=== PATIENT | male | born 1960 | race Caucasian/White ===

== ENCOUNTER 2022-10-07 14:50 | Emergency (ER) | payer OTHER, SELFPAY ==
[2022-10-07 15:15] VITALS: BP 133/72; PULSE 73; RESP 16; TEMP 36.7; O2SAT 99
[2022-10-07] MEDS: TETANUS,DIPHTHERIA,AC PERTUSSIS ADULT (0.5 ML) BOOSTRIX IM (17:24)
[2022-10-07] MEDS: LIDOCAINE HCL 1% LOCAL INJ 10 ML VIAL (17:25)
--- NOTE | 2022-10-07 17:39 | ED.WOUNDLAC ---
HPI - Wound/Laceration General Chief Complaint: Wound/Laceration Stated Complaint: Finger Laceration Time Seen by Provider: 10/07/22 16:53 Source: patient Mode of arrival: ambulatory Limitations: no limitations History of Present Illness HPI narrative: This is a 62-year-old male that presents to the emergency department for a laceration to the left second finger sustained just prior to arrival. Reports he accidentally cut himself with a box car loader. Reports bleeding and pain to the area. He is unsure of his last tetanus vaccination. Denies decreased range of motion or numbness. Related Data Home Medications Medication Instructions Recorded Confirmed aspirin 81 mg chewable tablet 81 mg PO DAILY 05/15/22 05/15/22 Allergies Allergy/AdvReac Type Severity Reaction Status Date / Time No Known Allergies Allergy Verified 10/07/22 17:01 Review of Systems Review of Systems: CONSTITUTIONAL: Denies fever SKIN: Reports laceration MUSCULOSKELETAL: Denies joint pain NEUROLOGIC: Denies numbness All systems reviewed & are unremarkable except as noted in HPI and below PMFSH Past Medical History Medical History Colon polyps Hearing aid worn Obesity (BMI 30.0-34.9) Tubular adenoma of colon Social History Social History (Updated 05/15/22 @ 13:39 by Wilfredo Mason MA) Smoking status: Current some day smoker Smoking end date: 10/27/18 Additional smoking assessment comments: pt is off and on smoker Alcohol intake: current Substance use type: does not use Lack of Transportation: No Lack of Food: Never True Current Housing: I Have Housing Concerned About Future Housing: No Difficulty Paying Gas/Electric Bills: No Difficulty Paying for Meds: No Currently Unemployed: No Education: Bachelor's Degree Difficulty w/ Childcare or Family Care: No Exam Narrative: GENERAL: Well-appearing, well-nourished, and in no acute distress. HEAD: Normocephalic, atraumatic. EYES: EOMI. EXTREMITIES: Normal range of motion. No edema. Left second finger dorsal surface at the base with 1cm linear laceration into subcutaneous tissue. Normal sensation SKIN: Warm, dry, no rash. NEURO: No focal deficits. Alert and oriented x3. PSYCH: Normal mood and affect Course Course Emergency Course: Patient was educated on wound care Vital Signs Vital signs: Vital Signs Temperature 98.1 F 10/07/22 15:15 Pulse Rate 73 10/07/22 15:15 Respiratory Rate 16 10/07/22 15:15 Blood Pressure 133/72 10/07/22 15:15 Pulse Oximetry 99 10/07/22 15:15 Oxygen Delivery Room Air 10/07/22 15:15 Temperature 98.1 F 10/07/22 15:15 Pulse Rate 73 10/07/22 15:15 Respiratory Rate 16 10/07/22 15:15 Blood Pressure 133/72 10/07/22 15:15 Pulse Oximetry 99 10/07/22 15:15 Oxygen Delivery Room Air 10/07/22 15:15 Procedures Laceration Laceration 1: Date: 10/07/22 Time: 17:41 Site: hand Side (If applicable): left Size (cm): 1 Description: linear Depth: simple, single layer Local Anesthetic: lidocaine 1% Amount of anesthesia used (mL): 1 Pre-repair: wound explored and irrigated ====== Skin Level ====== Skin layer closed with: nylon Size (cm): 4-0 Number of sutures: 2 Technique: simple, interrupted ====== Subcutaneous Layer ====== ====== Muscle Layer ====== ====== Tendon Layer ====== MDM - Wound/Laceration MDM Narrative Medical decision making narrative: Patient presents emergency department for a laceration to the left second finger sustained just prior to arrival. He is neurovascularly intact. Updated on tetanus. Wound was irrigated and closed with sutures. He was educated on wound care. He is to follow-up with primary care provider. He was given warnings to return to the ER Differential Diagnosis Differential di
[2022-10-07 17:50] VITALS: BP 132/79; PULSE 71; O2SAT 98
== END 2022-10-07 17:51 | disposition home or self-care (01) ==
PROVIDERS: Emergency Provider Physician Assistant; PCP Family Medicine
DX: S61.211A Laceration without foreign body of left index finger without damage to nail, initial encounter (principal); Z23 Encounter for immunization; E66.9 Obesity, unspecified; Z68.33 Body mass index [BMI] 33.0-33.9, adult; Z86.010 Personal history of colon polyps; Z87.891 Personal history of nicotine dependence; W27.0XXA Contact with workbench tool, initial encounter
CPT/HCPCS: 12001; 90471; 90715; 99282

== ENCOUNTER 2022-10-17 08:52 | Outpatient (CLI) | payer OTHER, SELFPAY ==
[2022-10-17 18:47] LABS: Kit Draw Collected
== END 2022-10-17 08:53 | disposition home or self-care (01) ==
LOC: ANHGOSHLAB 08:54
PROVIDERS: PCP Family Medicine; Visit Provider Physician Assistant
DX: E11.9 Type 2 diabetes mellitus without complications (principal); I10 Essential (primary) hypertension; E78.2 Mixed hyperlipidemia; E66.9 Obesity, unspecified
CPT/HCPCS: 36415

== ENCOUNTER 2023-05-01 08:34 | Outpatient (CLI) | payer OTHER, SELFPAY ==
--- NOTE | ~2023-05-01 | US_ITS ---
EXAMINATION: US arterial ankle brachial ind DATE: 05/01/2023 09:25 INDICATION: Peripheral vascular disease, unspecified. TECHNIQUE: Segmental pressures and plethysmographic and Doppler waveforms of the brachial and lower e xtremity arteries were obtained. COMPARISON: None. FINDINGS: Right and left brachial artery pressures of 124 mm Hg and 126 mm Hg, respectively, are concordant (no rmal difference <= 30 mmHg). The right ankle-brachial index (TOM) is 1.39 (normal >= 0.9-1.0). The right great toe-brachial index (TBI) is 1.02 (normal >= 0.65). Arterial Doppler waveforms are triphasic at the right posterior tibia l artery and biphasic at the right dorsalis pedis artery, both with brisk systolic upstrokes. The left TOM is 1.37. The left TBI is 0.67. Arterial Doppler waveforms are triphasic with brisk systo lic upstrokes at both left posterior tibial and dorsalis pedis arteries. IMPRESSION: 1. No significant arterial occlusive disease to either lower limb with normal bilateral ABIs and TBIs . Reviewed, dictated and finalized at location A. [employer] HE[employer] IMPRESSION: 1. No significant arterial occlusive disease to either lower limb with normal b ilateral ABIs and TBIs.
== END 2023-05-01 08:35 | disposition home or self-care (01) ==
PROVIDERS: PCP Family Medicine; Visit Provider Nurse Practitioner Family
DX: I73.9 Peripheral vascular disease, unspecified (principal); E11.9 Type 2 diabetes mellitus without complications
CPT/HCPCS: 93922

== ENCOUNTER 2023-10-02 10:41 | Outpatient (CLI) | payer OTHER, SELFPAY ==
--- NOTE | ~2023-10-02 | XR_ITS ---
3 VIEWS LUMBAR SPINE Ordering provider: Raj Mazariegos MD History: . M54.30 - Sciatica, unspecified side . Comparison: None. FINDINGS: VERTEBRAL BODIES:Multilevel Loss of volume most likely chronic in the lower thoracic area. No visibl e fracture or subluxation in the lumbar area. Degenerative changes of the spine. DISK SPACES: Narrowing of the disc L3-L4 and L1-L2. SOFT TISSUES: Normal. IMPRESSION: No acute osseous abnormality lumbar spine. Reviewed, dictated and finalized at location A.
== END 2023-10-02 10:42 ==
LOC: GOSHIMG 10:42
PROVIDERS: PCP Family Medicine; Visit Provider Family Medicine
DX: M54.30 Sciatica, unspecified side (principal)
CPT/HCPCS: 72110

== ENCOUNTER 2024-09-16 10:26 | Outpatient (CLI) | payer OTHER, SELFPAY ==
--- NOTE | ~2024-09-16 | XR_ITS ---
XR knee RT 3V Ordering provider: MARIAN NovakC History: . M25.561 - Pain in right knee . Comparison: None. FINDINGS: BONES: No acute fracture or dislocation. Bipartite patella is noted. JOINT SPACES: Slight narrowing of the medial compartment.. Marginal osteophytes seen in the patella. SOFT TISSUES: Normal. IMPRESSION: No acute osseous abnormality right knee. Bipartite patella. Mild osteoarthritic changes of the medial and patellofemoral joints. Reviewed, dictated and finalized at location A.
== END 2024-09-16 10:27 | disposition home or self-care (01) ==
PROVIDERS: PCP Family Medicine; Visit Provider Nurse Practitioner Family
DX: M17.11 Unilateral primary osteoarthritis, right knee (principal)
CPT/HCPCS: 73562